=== PATIENT | female | born 1955 | race Caucasian/White ===

== ENCOUNTER → 2018-02-21 | Outpatient (CLI) | payer BC ==
[~2018-02-21] MED LIST: GADOBUTROL 7.5 MMOL/7.5 ML VIAL ONE
== END | disposition home or self-care (01) ==
LOC: CFH 08:54
PROVIDERS: ATTEND Internal Medicine
DX: C50.919 Malignant neoplasm of unspecified site of unspecified female breast (principal); Z90.10 Acquired absence of unspecified breast and nipple
CPT/HCPCS: A9585; C8908

== ENCOUNTER → 2018-08-26 | Outpatient (CLI) | payer OTHER | END | disposition home or self-care (01) | LOC: CFH 12:51 | PROVIDERS: ATTEND Internal Medicine Hematology & Oncology | DX: C50.211 Malignant neoplasm of upper-inner quadrant of right female breast (principal) ==

== ENCOUNTER → 2018-09-08 | Outpatient (CLI) | payer OTHER ==
[~2018-09-08] MED LIST changes: -GADOBUTROL 7.5 MMOL/7.5 ML VIAL ONE; +LIDOCAINE 1%, 20ML ONE; +LIDOCAINE 1%-EPI 1:100K, 20ML ONE; +SODIUM BICARBONATE 4.0%, 5ML ONE
== END | disposition home or self-care (01) ==
LOC: CFH 09:40
PROVIDERS: ATTEND Internal Medicine Hematology & Oncology
DX: N64.1 Fat necrosis of breast (principal)
CPT/HCPCS: 19083; 88112; 88305; J3490

== ENCOUNTER 2019-02-12 13:40 | Outpatient (CLI) | payer OTHER ==
[2019-02-12] MEDS ORDERED: GADOTERATE 10 MMOL/20 ML VIAL ONE (14:22)
== END 2019-02-12 23:59 | disposition home or self-care (01) ==
LOC: CFH 13:40
PROVIDERS: ATTEND Internal Medicine
DX: Z12.31 Encounter for screening mammogram for malignant neoplasm of breast (principal); Z85.3 Personal history of malignant neoplasm of breast
CPT/HCPCS: A9575; C8908; C8937

== ENCOUNTER → 2020-09-21 | Outpatient (CLI) | payer BC ==
[~2020-09-21] MED LIST changes: +GADOTERATE 10 MMOL/20 ML VIAL ONE; -LIDOCAINE 1%, 20ML ONE; -LIDOCAINE 1%-EPI 1:100K, 20ML ONE; -SODIUM BICARBONATE 4.0%, 5ML ONE
== END | disposition home or self-care (01) ==
LOC: CFH 12:29
PROVIDERS: ATTEND Internal Medicine
DX: Z85.3 Personal history of malignant neoplasm of breast (principal); Z90.13 Acquired absence of bilateral breasts and nipples
CPT/HCPCS: 77049; A9575; C8937; C8908

== ENCOUNTER 2020-11-24 09:54 | Observation (INO) | payer BC ==
[~2020-11-24] VITALS: Ht 162.6 cm; Wt 73.9 kg
--- NOTE | 2020-11-24 10:12 | NUR ---
PT AMBULATORY TO ROOM FROM TRIAGE, CHANGED INTO GOWN, MONITORS IN PLACE. PT C/O LEFT NECK TIGHTNESS RADIATING TO LEFT SHOULDER. ASSOCIATED WITH HIGHER THAN NORMAL BP: 170'S AT HOME WHEN SHE TOOK IT AROUND 0300 THIS AM AND THEN WENT BACK TO SLEEP. NADN/VSS. CALL LIGHT WITHIN REACH
--- NOTE | 2020-11-24 10:13 | NUR ---
PA AT BS
[2020-11-24] MEDS ORDERED: ASPIRIN 81 MG TABLET CHEW ONE (10:23)
[2020-11-24] MEDS ORDERED: LOSA1TAB22 PO (10:28)
--- NOTE | 2020-11-24 10:28 | NUR ---
PT AMBULATORY TO BR WITH UPRIGHT STEADY GAIT.
[2020-11-24] MEDS ORDERED: ASPIRIN 81 MG TABLET CHEW PO ONE (10:30)
--- NOTE | 2020-11-24 10:32 | NUR ---
XRAY AT BS
--- NOTE | 2020-11-24 10:52 | NUR ---
RECEIVED REPORT FROM SARAH DOLAN. ASSUMING CARE AT THIS TIME. AWAITING LAB RESULTS.
[2020-11-24 10:53] LABS: BASOPHILS % (AUTO) 1 % (0-1); EOSINOPHILS % (AUTO) 1 % (1-7); LYMPHOCYTES % (AUTO) 34 % (22-44); MEAN CORPUSCULAR HGB CONC 34.8 g/dL (32.4-35.8); MEAN PLATELET VOLUME 7.3 fL (7.4-10.4); MONOCYTES % (AUTO) 12 % (2-9); NEUTROPHILS % (AUTO) 52 % (42-75); PLATELET COUNT 328 x10^3/uL (130-400); RED BLOOD COUNT 4.45 x10^6/uL (3.82-5.3); RED CELL DISTRIBUTION WIDTH 13.5 % (9.6-15.2)
[2020-11-24 11:01] LABS: ALANINE AMINOTRANSFERASE 48 U/L (12-78); ALBUMIN 3.6 g/dL (3.4-5.0); ANION GAP 4 mmol/L (5-15); CALCIUM 9.4 mg/dL (8.5-10.1); CHLORIDE 106 mmol/L (98-107); CREATININE 0.95 mg/dL (0.55-1.02)
[2020-11-24 11:07] LABS: ALKALINE PHOSPHATASE 95 U/L (45-117); BILIRUBIN,TOTAL 0.3 mg/dL (0.2-1.0); TOTAL PROTEIN 7.9 g/dL (6.4-8.2); TROPONIN I < 0.015 ng/mL (0.000-0.045)
--- NOTE | 2020-11-24 11:40 | NUR ---
ALL RESULTS ARE BACK AT THIS TIME. CHART UP FOR RECHECK.
--- NOTE | 2020-11-24 11:55 | NUR ---
N/O FOR CTA. PIV PLACED. PT UPDATED.
[2020-11-24] MEDS ORDERED: POTASSIUM CHLORIDE 20 MEQ TAB.ER.PRT ONE (11:57)
--- NOTE | 2020-11-24 11:59 | NUR ---
COTTAGE MASTER PER MAR.
[2020-11-24] MEDS ORDERED: SODIUM CHLORIDE FLUSH 10ML SYR IVF ONE (12:00)
[2020-11-24] MEDS ORDERED: POTASSIUM CHLORIDE 20 MEQ TAB.ER.PRT PO ONE (12:00)
--- NOTE | 2020-11-24 12:44 | NUR ---
ALL RESULTS ARE BACK AT THIS TIME. CHART UP FOR RECHECK.
--- NOTE | 2020-11-24 13:05 | NUR ---
ERMD AT BEDSIDE TO UPDATE PT ON POC.
--- NOTE | 2020-11-24 13:10 | NUR ---
PT TO BE ADMIT.
[2020-11-24] MEDS ORDERED: NITROGLYCERIN 0.4 MG/SPRAY SL PRN (13:30)
[2020-11-24] MEDS ORDERED: NITROGLYCERIN 0.4 MG BOTTLE (25 TABS) SL PRN (13:30)
[2020-11-24] MEDS ORDERED: ACETAMINOPHEN 325 MG TABLET PO PRN (13:30)
[2020-11-24] MEDS ORDERED: ASPIRIN 325 MG TABLET EC PO ONE (13:30)
[2020-11-24] MEDS ORDERED: LABETALOL 5MG/ML, 20ML IVPush PRN (13:30)
[2020-11-24] MEDS ORDERED: ONDANSETRON 2MG/ML, 2ML IVPush PRN (13:30)
[2020-11-24] MEDS ORDERED: morphine SULFATE 10 MG/ML, 1ML IVPush PRN (13:30)
[2020-11-24] MEDS ORDERED: ONDANSETRON ODT 4 MG PO PRN (13:30)
--- NOTE | 2020-11-24 14:12 | NUR ---
REPORT GIVEN TO PARTH DOLAN. PT RTG TO ROOM [id number]
[2020-11-24 14:17] LABS: TROPONIN I < 0.015 ng/mL (0.000-0.045)
[2020-11-24 14:35] VITALS: BP 122/73
[2020-11-24] MEDS ORDERED: ENOXAPARIN 40 MG/0.4 ML SQ SCH (16:00)
[2020-11-24] MEDS ORDERED: META800T PO (19:31)
[2020-11-24 20:05] VITALS: BP 136/63
[2020-11-25 03:05] VITALS: BP 120/75
[2020-11-25 05:15] LABS: ANION GAP 6 mmol/L (5-15); CALCIUM 8.9 mg/dL (8.5-10.1); CHLORIDE 108 mmol/L (98-107)
[2020-11-25] MEDS ORDERED: ASPIRIN 325 MG TABLET EC PO SCH (06:00)
[2020-11-25] MEDS ORDERED: POTASSIUM CHLORIDE 20 MEQ TAB.ER.PRT PO ONE (07:00)
[2020-11-25 07:48] VITALS: BP 118/74
[2020-11-25] MEDS ORDERED: [UNRECOGNIZED DRUG - OTHER] PO SCH (09:00)
[2020-11-25] MEDS ORDERED: HYDROCHLOROTHIAZIDE PO SCH (09:00)
[2020-11-25] MEDS ORDERED: LOSARTAN PO SCH (09:00)
== END 2020-11-25 12:11 | disposition home or self-care (01) ==
LOC: ED 11:09 → EDIP 13:13 → INTOOBSV 13:13 → 5SO 14:15
PROVIDERS: ADMIT Hospitalist; ATTEND Family Medicine
DX: R07.89 Other chest pain (principal); I10 Essential (primary) hypertension; E87.6 Hypokalemia; Z85.3 Personal history of malignant neoplasm of breast; Z79.899 Other long term (current) drug therapy
CPT/HCPCS: 36415; 71045; 71275; 80048; 80053; 80061; 83735; 84484; 85025; 85379; 93005; 93017; 96372; 96374; 99285; G0378; J1650; J2270